=== PATIENT | male | born 1955 | race Caucasian/White ===

== ENCOUNTER → 2019-07-29 12:51 | Outpatient (BNVA) | payer OTHER, SELFPAY | PROVIDERS: Referring Provider Family Medicine; Visit Provider Specialist | DX: G40.309 Generalized idiopathic epilepsy and epileptic syndromes, not intractable, without status epilepticus (principal); G70.00 Myasthenia gravis without (acute) exacerbation; G57.31 Lesion of lateral popliteal nerve, right lower limb; G56.23 Lesion of ulnar nerve, bilateral upper limbs | CPT/HCPCS: 99205 ==

== ENCOUNTER → 2020-06-13 12:44 | Outpatient (BNVA) | payer OTHER, SELFPAY | PROVIDERS: Visit Provider Specialist | DX: G70.00 Myasthenia gravis without (acute) exacerbation (principal); G40.309 Generalized idiopathic epilepsy and epileptic syndromes, not intractable, without status epilepticus; G57.31 Lesion of lateral popliteal nerve, right lower limb; G56.23 Lesion of ulnar nerve, bilateral upper limbs; Z87.891 Personal history of nicotine dependence | CPT/HCPCS: 99215 ==

== ENCOUNTER → 2020-07-17 15:01 | Outpatient (BNVA) | payer OTHER, SELFPAY | PROVIDERS: Visit Provider Specialist | DX: G70.00 Myasthenia gravis without (acute) exacerbation (principal); G40.309 Generalized idiopathic epilepsy and epileptic syndromes, not intractable, without status epilepticus; G57.31 Lesion of lateral popliteal nerve, right lower limb; G56.23 Lesion of ulnar nerve, bilateral upper limbs; E11.9 Type 2 diabetes mellitus without complications; Z79.4 Long term (current) use of insulin; Z87.891 Personal history of nicotine dependence | CPT/HCPCS: 99214 ==

== ENCOUNTER → 2020-08-28 12:05 | Outpatient (BNVA) | payer OTHER, SELFPAY | PROVIDERS: Visit Provider Specialist | DX: G40.309 Generalized idiopathic epilepsy and epileptic syndromes, not intractable, without status epilepticus (principal); G70.00 Myasthenia gravis without (acute) exacerbation; G57.31 Lesion of lateral popliteal nerve, right lower limb; G56.23 Lesion of ulnar nerve, bilateral upper limbs | CPT/HCPCS: 99214 ==

== ENCOUNTER → 2020-11-28 13:30 | Outpatient (BNVA) | payer OTHER, SELFPAY | PROVIDERS: PCP Family Medicine; Visit Provider Specialist | DX: G70.00 Myasthenia gravis without (acute) exacerbation (principal); G40.309 Generalized idiopathic epilepsy and epileptic syndromes, not intractable, without status epilepticus; G57.31 Lesion of lateral popliteal nerve, right lower limb; G56.23 Lesion of ulnar nerve, bilateral upper limbs; E11.65 Type 2 diabetes mellitus with hyperglycemia; Z79.4 Long term (current) use of insulin; Z87.891 Personal history of nicotine dependence | CPT/HCPCS: 99215 ==

== ENCOUNTER → 2022-06-04 16:09 | Outpatient (BNVA) | payer MEDICARE, SELFPAY | PROVIDERS: PCP Family Medicine; Visit Provider Specialist | DX: G40.309 Generalized idiopathic epilepsy and epileptic syndromes, not intractable, without status epilepticus (principal); G70.00 Myasthenia gravis without (acute) exacerbation; G61.82 Multifocal motor neuropathy | CPT/HCPCS: 99214 ==

== ENCOUNTER → 2022-12-03 13:57 | Outpatient (BNVA) | payer MEDICARE, SELFPAY | PROVIDERS: PCP Family Medicine; Visit Provider Specialist | DX: G40.309 Generalized idiopathic epilepsy and epileptic syndromes, not intractable, without status epilepticus (principal); G70.00 Myasthenia gravis without (acute) exacerbation; G61.82 Multifocal motor neuropathy; M21.371 Foot drop, right foot | CPT/HCPCS: 99215 ==

== ENCOUNTER → 2023-06-11 13:45 | Outpatient (BNVA) | payer MEDICARE, SELFPAY | PROVIDERS: PCP Family Medicine; Visit Provider Specialist | DX: G61.82 Multifocal motor neuropathy (principal); G40.309 Generalized idiopathic epilepsy and epileptic syndromes, not intractable, without status epilepticus; G70.00 Myasthenia gravis without (acute) exacerbation; G56.23 Lesion of ulnar nerve, bilateral upper limbs | CPT/HCPCS: 99214; 99215 ==

== ENCOUNTER → 2023-12-10 14:11 | Outpatient (BNVA) | payer MEDICARE, SELFPAY | PROVIDERS: PCP Family Medicine; Visit Provider Specialist | DX: G61.82 Multifocal motor neuropathy (principal); G40.309 Generalized idiopathic epilepsy and epileptic syndromes, not intractable, without status epilepticus; G70.00 Myasthenia gravis without (acute) exacerbation; G56.23 Lesion of ulnar nerve, bilateral upper limbs | CPT/HCPCS: 99214 ==

== ENCOUNTER → 2024-12-06 12:30 | Outpatient (BNVA) | payer MEDICARE, SELFPAY | PROVIDERS: PCP Family Medicine; Visit Provider Specialist | DX: G70.00 Myasthenia gravis without (acute) exacerbation (principal); G61.82 Multifocal motor neuropathy; G40.309 Generalized idiopathic epilepsy and epileptic syndromes, not intractable, without status epilepticus; G56.23 Lesion of ulnar nerve, bilateral upper limbs; R03.0 Elevated blood-pressure reading, without diagnosis of hypertension | CPT/HCPCS: 36415; 83516; 83519; 99214 ==